=== PATIENT | male | born 1980 | race African-American/Black ===

== ENCOUNTER 2016-08-26 09:30 | Emergency (ER) | payer SELFPAY ==
[~2016-08-26] VITALS: Ht 162.6 cm; Wt 70.8 kg
[2016-08-26 10:18] VITALS: BP 115/73
[2016-08-26] MEDS ORDERED: ONDANSETRON 2MG/ML, 2ML ONE (10:21)
[2016-08-26] MEDS ORDERED: MORPHINE SULFATE 4 MG/ML, 1ML ONE (10:21)
[2016-08-26] MEDS ORDERED: SODIUM CHLORIDE 0.9% 1,000ML IVBOLUS ONE (10:30)
[2016-08-26] MEDS ORDERED: ONDANSETRON 2MG/ML, 2ML IVPush ONE (10:30)
[2016-08-26] MEDS ORDERED: SODIUM CHLORIDE FLUSH 10ML SYR IVF ONE (10:30)
[2016-08-26] MEDS ORDERED: MORPHINE SULFATE 4 MG/ML, 1ML IVPush PRN (10:30)
[2016-08-26 10:34] LABS: HEMOGLOBIN 14.2 g/dL (13.7-18.0)
[2016-08-26 10:44] LABS: IS PT STATUS REG ER OR PRE ER? YES
[2016-08-26 10:55] LABS: ASPARTATE AMINO TRANSFERASE 14 U/L (15-37); BLOOD UREA NITROGEN 8 mg/dL (7-18)
== END 2016-08-26 11:21 | disposition home or self-care (01) ==
LOC: ED 11:15
DX: K85.20 Alcohol induced acute pancreatitis without necrosis or infection (principal); K29.20 Alcoholic gastritis without bleeding; Z86.14 Personal history of Methicillin resistant Staphylococcus aureus infection
CPT/HCPCS: 36415; 74022; 80053; 83690; 84484; 85025; 85610; 93005; 96361; 96374; 96375; 99285; J2405; J7030